=== PATIENT | male | born 1980 | race Caucasian/White ===

== ENCOUNTER 2023-07-29 21:25 | Emergency (ER) | payer SELFPAY ==
[~2023-07-29] VITALS: Ht 167.6 cm; Wt 68.0 kg
[2023-07-29 21:45] VITALS: BP 166/96; PULSE 98; RESP 20; TEMP 97.9; O2SAT 99
[2023-07-29 23:57] VITALS: BP 166/96; PULSE 98; RESP 20; TEMP 97.9; O2SAT 99
== END 2023-07-29 23:57 | disposition left against medical advice (07) ==
LOC: MED 21:25
DX: R51.9 Headache, unspecified (principal); M79.10 Myalgia, unspecified site; R50.9 Fever, unspecified; Z53.20 Procedure and treatment not carried out because of patient's decision for unspecified reasons
CPT/HCPCS: 99281